=== PATIENT | female | born 1945 | race Caucasian/White ===

== ENCOUNTER → 2024-03-16 12:47 | Outpatient (REF) | payer BC, SELFPAY | LOC: RAD 12:47 | PROVIDERS: ATTENDING PHYSICIAN Student in an Organized Health Care Education/Training Program | DX: R05.1 Acute cough (principal) | CPT/HCPCS: 71046 ==

== ENCOUNTER → 2024-06-10 16:50 | Outpatient (REF) | payer BC, SELFPAY | LOC: WDC 16:50 | PROVIDERS: ATTENDING PHYSICIAN Student in an Organized Health Care Education/Training Program | DX: Z12.31 Encounter for screening mammogram for malignant neoplasm of breast (principal) | CPT/HCPCS: 77063; 77067 ==

== ENCOUNTER → 2025-06-11 13:18 | Outpatient (REF) | payer BC, SELFPAY | LOC: WDC 13:18 | PROVIDERS: ATTENDING PHYSICIAN Student in an Organized Health Care Education/Training Program | DX: Z12.31 Encounter for screening mammogram for malignant neoplasm of breast (principal) | CPT/HCPCS: 77063; 77067 ==